=== PATIENT | female | born 1955 | race Two or more races ===

== ENCOUNTER 2021-06-15 22:10 | Emergency (ER) | payer MEDICAID, OTHER ==
[~2021-06-15] VITALS: Ht 170.2 cm; Wt 70.3 kg
--- NOTE | 2021-06-15 22:45 | NUR ---
PT BIBRA C/O RT ARM PAIN AND LEFT EYEBROW SWELLING AND LAC S/P TRIP AND FALL. PT [id number] BREATHING EVENLY AND UNLABORED. PT ATTACHED TO MONITOR AND POX. MD AT BEDSIDE FOR EVAL. WILL CONTINUE TO MONITOR.
[2021-06-15] MEDS ORDERED: LET SOLN TOPICAL 8 ML UDC TP ONE (22:47)
[2021-06-15] MEDS: LET SOLN TOPICAL 8 ML UDC TP ONE (22:48)
[2021-06-15] MEDS ORDERED: TDAP [DIPH/PERTUSSIS/TET] 0.5 ML VIAL IM ONE (22:54)
[2021-06-15] MEDS ORDERED: LIDOCAINE 1%-EPI 1:100,000 20 ML VIAL ONE (22:54)
[2021-06-15] MEDS: TDAP [DIPH/PERTUSSIS/TET] 0.5 ML VIAL IM ONE (22:58)
--- NOTE | 2021-06-15 23:27 | NUR ---
RETURNED FROM CT
--- NOTE | 2021-06-15 23:45 | NUR ---
AT BEDSIDE FOR PROCEDURE
[2021-06-15] MEDS: LIDOCAINE 1%-EPI 1:100,000 20 ML VIAL TP ONE (23:56)
--- NOTE | 2021-06-16 00:09 | NUR ---
VERBAL ORDER 650MG TYLENNOL PO
[2021-06-16] MEDS ORDERED: ACETAMINOPHEN 325 MG TABLET ONE (00:10)
--- NOTE | 2021-06-16 00:12 | NUR ---
LONG ARM SPLINT + SHOULDER SLING APPLIED.
[2021-06-16] MEDS ORDERED: OXYC5CAP18 PO (00:23)
--- NOTE | 2021-06-16 00:32 | NUR ---
Patient discharged to home in stable condition. Written and verbal after care instructions given. Patient verbalizes understanding of instruction. Pt ambulatory with a steady gait. Family here to drive pt home
[2021-06-16 00:38] VITALS: BP 150/73
== END 2021-06-16 00:32 | disposition home or self-care (01) ==
LOC: ER 22:12
DX: S42.351A Displaced comminuted fracture of shaft of humerus, right arm, initial encounter for closed fracture (principal); S01.112A Laceration without foreign body of left eyelid and periocular area, initial encounter; I10 Essential (primary) hypertension; Z88.0 Allergy status to penicillin; Z88.6 Allergy status to analgesic agent; W01.198A Fall on same level from slipping, tripping and stumbling with subsequent striking against other object, initial encounter; Y93.89 Activity, other specified; Y92.89 Other specified places as the place of occurrence of the external cause; Y99.8 Other external cause status
CPT/HCPCS: 12011; 24505; 70450; 70486; 72125; 73030; 73060; 90471; 90715; 99285; J3490